=== PATIENT | female | born 1925 | race Caucasian/White ===

== ENCOUNTER → 2016-09-05 | Outpatient (CLI) | payer OTHER, BC | LOC: MMPC 10:00 | PROVIDERS: ATTEND Podiatrist Foot & Ankle Surgery | DX: M79.671 Pain in right foot (principal); L97.512 Non-pressure chronic ulcer of other part of right foot with fat layer exposed; L97.511 Non-pressure chronic ulcer of other part of right foot limited to breakdown of skin; M79.672 Pain in left foot; L84 Corns and callosities; M20.42 Other hammer toe(s) (acquired), left foot; Q66.7 Congenital pes cavus; M21.6X1 Other acquired deformities of right foot; L60.3 Nail dystrophy; M20.41 Other hammer toe(s) (acquired), right foot | CPT/HCPCS: 97597 ×2; 99213; G0463 ==

== ENCOUNTER → 2016-10-11 | Outpatient (CLI) | payer OTHER | LOC: MMPC 10:00 | PROVIDERS: ATTEND Podiatrist Foot & Ankle Surgery | DX: L97.512 Non-pressure chronic ulcer of other part of right foot with fat layer exposed (principal); M20.42 Other hammer toe(s) (acquired), left foot; M20.41 Other hammer toe(s) (acquired), right foot; L84 Corns and callosities; L60.3 Nail dystrophy; M79.672 Pain in left foot; M79.671 Pain in right foot; Q66.7 Congenital pes cavus; M21.6X1 Other acquired deformities of right foot | CPT/HCPCS: 11056 ×2; 99212; G0463 ==